=== PATIENT | female | born 1935 | race Caucasian/White ===

== ENCOUNTER → 2017-01-31 | Outpatient (CLI) | payer MEDICARE, BC ==
[~2017-01-31] MED LIST: AMITIZA24 MCG PO; ASPIRIN325 MG PO; ASPIRIN81 MG PO; DONEPEZIL HCL OD5 MG PO; ELAVIL10 MG PO; GLUCOPHAGE500 MG PO; HYZAAR 50-12.51 EACH PO; IMDUR30 MG PO; KLONOPIN1 MG PO; LASIX20 MG PO; NORVASC2.5 M1 PO; REQUIP1 MG PO; SYNTHROID100 MCG PO
== END | disposition short-term general hospital (02) ==
LOC: CLPAIN 11:33
DX: M47.26 Other spondylosis with radiculopathy, lumbar region (principal); G89.28 Other chronic postprocedural pain; Z79.899 Other long term (current) drug therapy

== ENCOUNTER 2017-02-14 11:17 | Day surgery (SDC) | payer MEDICARE, BC ==
[~2017-02-14] VITALS: Ht 165.1 cm; Wt 64.9 kg
== END 2017-02-14 15:00 | disposition short-term general hospital (02) ==
LOC: SURGOP 11:17 → EDSTATUS 11:37 → SURGOP 15:00
PROC: 3E0T3TZ Introduction of Destructive Agent into Peripheral Nerves and Plexi, Percutaneous Approach (ICD-10-PCS; principal; 2017-02-14)
PROC: BR16ZZZ Fluoroscopy of Lumbar Facet Joint(s) (ICD-10-PCS; 2017-02-14)
DX: M47.816 Spondylosis without myelopathy or radiculopathy, lumbar region (principal); G89.4 Chronic pain syndrome; I10 Essential (primary) hypertension; I25.10 Atherosclerotic heart disease of native coronary artery without angina pectoris; E78.5 Hyperlipidemia, unspecified; Z96.641 Presence of right artificial hip joint; Z79.899 Other long term (current) drug therapy; Z83.3 Family history of diabetes mellitus
CPT/HCPCS: J1040; J2250

== ENCOUNTER → 2017-04-04 | Outpatient (CLI) | payer MEDICARE, BC | END | disposition short-term general hospital (02) | LOC: CLPAIN 09:09 | DX: M54.16 Radiculopathy, lumbar region (principal); M48.06 Spinal stenosis, lumbar region; M16.11 Unilateral primary osteoarthritis, right hip; G89.28 Other chronic postprocedural pain; G89.4 Chronic pain syndrome ==